=== PATIENT | male | born 1965 | race Caucasian/White ===

== ENCOUNTER 2025-01-13 21:12 | Emergency (ER) | payer SELFPAY ==
[2025-01-13] VITALS (17 sets, daily range): BP systolic 131–192; BP diastolic 69–92; PULSE 134–152; RESP 17–29; TEMP 36.2; O2SAT 84–100
--- NOTE | ~2025-01-13 | CT_ITS ---
EXAMINATION: CT brain wo con DATE: 01/13/2025 21:42 INDICATION: TRANSIENT ALTERATION OF AWARENESS. SLURRED SPEECH. . TECHNIQUE: Computed tomography (CT) of the head was performed without intravenous contrast. The mA wa s adjusted according to patient size. Iterative reconstruction technique was employed. The dose-lengt h product was 681.00 mGy-cm. COMPARISON: None. FINDINGS: No acute intracranial hemorrhage or extra-axial fluid collection. No hydrocephalus, mass, or herniation. No acute ischemic infarct. Unremarkable dural venous sinus attenuation. No acute osseous abnormality. Mild inferior right maxillary mucosal thickening, the remaining aerated spaces are clear. Moderate atrophy and chronic white matter change. Atherosclerotic intracranial calcification. Small r egion of dense calcifications in the left parietal lobe white matter, adjacent to the atrium of the l eft lateral ventricle. IMPRESSION: No acute intracranial process. Focus of calcifications in the left parietal periventricular white matter, may represent a developmen yeni venous anomaly, small AVM, dystrophic calcification from prior injury/insult, or other calcified lesion. Consider MRI of the brain without and with contrast for further evaluation. Reviewed, dictated and finalized at location K. IMPRESSION: No acute intracranial process. Focus of calcifications in the left parietal periventricular white matter, may represent a developmental venous anomaly, small AVM, dystrophic calcification f rom prior injury/insult, or other calcified lesion. Consider MRI of the brain w ithout and with contrast for further evaluation.
--- NOTE | ~2025-01-13 | XR_ITS ---
XR chest port-a-cath/central Ordering provider: Rich Centeno MD History: 59 years Male with . status post left subclavian central line. . Comparison: January 13, 2025 FINDINGS: MEDIASTINUM: The cardiac silhouette is not enlarged. Left central line is seen with the tip overlying the superior vena cava. LUNGS: No infiltrates, effusions or pneumothorax. Slightly prominent bronchovascular markings are seen bilaterally. OTHER: No free air under the diaphragm. IMPRESSION: No acute cardiopulmonary pathology. Left central line with the tip overlying the superior vena cava. Reviewed, dictated and finalized at location A. IMPRESSION: No acute cardiopulmonary pathology. Left central line with the tip overlying th e superior vena cava.
--- NOTE | ~2025-01-13 | XR_ITS ---
EXAMINATION: XR chest 1V portable Exam Date/Time: 01/13/2025 21:30 CDT HISTORY: shortness of breath Comparison: None. RESULT: Lines, tubes, and devices: None. Lungs and pleura: Rightward rotation. Low volumes. Subsegmental bibasilar opacities. Cardiomediastinal silhouette: Unremarkable. Other: Multiple loops of dilated small bowel in the upper abdomen No acute osseous finding. IMPRESSION: Subsegmental bibasilar atelectasis/consolidation. Multiple loops of dilated small bowel in the upper abdomen, recommend CT of the abdomen and pelvis wi th contrast for further evaluation. Reviewed, dictated and finalized at location K. IMPRESSION: Subsegmental bibasilar atelectasis/consolidation. Multiple loops of dilated small bowel in the upper abdomen, recommend CT of the abdomen and pelvis with contrast for further evaluation.
--- NOTE | 2025-01-13 21:16 | ECG_ITS ---
Test Date: 2025-01-13 21:18:22 Measurements Intervals [place] Rate: 143 P: 0 PA: 0 QRS: -71 QRSD: 134 T: 73 QT: 336 QTc: 519 Interpretive Statements ATRIAL FLUTTER/TACHYCARDIA WITH RAPID VENTRICULAR RESPONSE LEFT AXIS DEVIATION INTRAVENTRICULAR CONDUCTION DELAY CANNOT R/O SEPTAL INFARCT, AGE INDETERMINATE BORDERLINE ST-T WAVE ABNORMALITY- HIGH LATERAL LEADS BASELINE ARTIFACT- I, II, III, AVR, AVL, AVF, V1-V6 ABNORMAL ECG No previous ECG available for comparison Electronically Signed On 01-14-2025 07:44:59 CDT by Hum[place] Cross D.O.
--- NOTE | 2025-01-13 21:16 | ED_ITS ---
HPI - Altered Mental Status General Chief Complaint: Altered Mental Status Stated Complaint: Altered Mental Status Time Seen by Provider: 01/13/25 21:16 Source: EMS Mode of arrival: EMS Limitations: altered mental status History of Present Illness HPI narrative: year old male with a history of hypertension, diabetes mellitus, CVA with TIA, dyslipidemia, gout, was noted to have -- decreased level of consciousness. Last known well was 24 hours ago. -- questionable weakness of the right half of the body -- expressive aphasia -- patient is continuously moaning. He denied pain. patient is awake and follows verbal commands. Is afebrile and hemodynamically stable. Blood sugars 255 MD complaint: confusion Onset (ago): unknown Timing confirmed by: caregiver Consistency of symptoms: constant Related Data Home Medications ?Medication ?Instructions ?Recorded ?Confirmed ?Last Taken ?Type allopurinol 100 mg tablet 100 mg PO .AM 01/13/25 01/13/25 Unknown History atorvastatin 40 mg tablet (Lipitor) 40 mg PO .AM 01/13/25 01/13/25 Unknown History folic acid 400 mcg tablet 400 mcg PO DAILY 01/13/25 01/13/25 Unknown History furosemide 40 mg tablet 40 mg PO DAILY PRN weight gain 01/13/25 01/13/25 Unknown History metoprolol succinate 50 mg 50 mg PO .AM 01/13/25 01/13/25 Unknown History tablet,extended release 24 hr pantoprazole 40 mg tablet,delayed 40 mg PO QAM 01/13/25 01/13/25 Unknown History release quetiapine 50 mg tablet 150 mg PO HS 01/13/25 01/13/25 Unknown History dapagliflozin propanediol 10 mg 10 mg PO QAM 01/14/25 01/14/25 Unknown History tablet (Farxiga) hydroxyzine HCl 25 mg tablet 25 mg PO QID PRN anxiety 01/14/25 01/14/25 Unknown History loratadine 10 mg capsule (Allergy 10 mg PO DAILY 01/14/25 01/14/25 Unknown History Relief (loratadine)) vitamin B complex 1 tablet PO QAM 01/14/25 01/14/25 Unknown History Allergies Allergy/AdvReac Type Severity Reaction Status Date / Time Unable to Assess Allergy Verified 01/13/25 21:46 Review of Systems 2 Review of Systems: ROS unobtainable: Yes unobtainable due to mental status PMFSH Past Medical History Medical History (Updated 01/14/25 @ 00:24 by Rich Centeno MD) COPD (chronic obstructive pulmonary disease) Gout CHF (congestive heart failure) Dyslipidemia Hypertension TIA (transient ischemic attack) Diabetes mellitus Exam 2 Narrative: Pulse of 140. Blood pressure stable. Temperature 97.4?. Oxygen saturation of 100% on room air Const: General: ill appearing Limitations: altered mental status Other: patient follows verbal commands. Unable to talk HENMT: Head: normal to inspection Ears: external ears normal F daniel/Nose/Sinus: Normal external nose present Face and sinus: normal facial exam Mouth: Yes Normal oral and palatal mucosa present Throat: posterior oropharynx normal Eyes: Conjunctivae: conjunctivae normal Pupils: Equal, round and reactive pupils present EOM: EOMs intact bilaterally Direct Ophthalmoscopy: no photophobia Neck: Neck: normal visual inspection Chest: Chest palpation & inspection: normal inspection of the chest Resp: Effort & Inspection: normal respiratory effort Auscultation: clear to auscultation bilaterally Cardio: Rate: tachycardic Rhythm: regular rhythm GI: GI Palp: Yes Soft to palpation Other: no tenderness/ rigidity /rebound : General: Yes no CVA tenderness Back/Spine/Pelvis: Back: no CVA tenderness Skin: Rashes: no rashes Wounds: no wounds Neuro: General: no focal motor deficits ( right sided weakness arm greater than leg) Speech: Abnormal speech present ( expressive aphasia) Extrem: General: normal to inspection and edema Psych: Mental Status: mental status grossly normal Course Course Emergency Course: altered mental status CVA with right-sided weakness and expressive aphasia-- last known well 24 hours ago. patient has a prior history of TIA involving the right side. while in the ED the patient developed right-sided focal seizures with deviation of the eyes to the left. This seizure lasted approximately 2 minutes. The patient received 2 mg of IV Ativan and subsequently 1000 mg of IV Keppra. The patient was noted to have lip bite and tongue bite. CT of the head showed left periventricular parietal lesion suggestive of an AVM/ prior infarct Postictal the patient continues to have ongoing right-sided weakness. elevated white cell count with elevated lactate-- could be secondary to seizure. Blood cultures and start empiric Vanco/Zosyn. x-ray revealed bibasilar atelectasis/ consolidation renal failure with a BUN/creatinine of 12/2 with metabolic acidosis with a bicarbonate of 17. Patient has anion gap of 20 possibly secondary to lactate. patient has elevated blood sugars and is on Farxiga. Cannot rule out DKA. Patient had an ABG on 10 L initially which was noted to be 684/48/270. this was done almost immediately after a seizure. A repeat ABG on room air was noted to be 715/50/60 Elevated blood sugars-- patient got 10 units of regular insulin IV x1. Will repeat blood sugars. distended loops of small intestine ongoing tachycardia-- heart rate has decreased from 150 to current levels of 137 after 2 L of IV fluids. discussed with , consumer insights specialist at [facility] in [place]. Advised to continue current management and give an additional 1 g of Keppra. Vital Signs Vital signs: Vital Signs Temperature 36.2 C L 01/13/25 21:15 Pulse Rate 150 H 01/13/25 21:15 Pulse Oximetry 99 01/13/25 21:15 Oxygen Delivery Nasal Cannula 01/13/25 21:15 Oxygen Flow Rate 2 01/13/25 21:15 Temperature 36.6 C 01/14/25 00:15 Pulse Rate 133 H 01/14/25 00:16 Respiratory Rate 18 01/14/25 00:15 Blood Pressure 150/73 H 01/14/25 00:15 Pulse Oximetry 95 01/14/25 00:15 Oxygen Delivery Nasal Cannula 01/14/25 00:15 Oxygen Flow Rate 4 01/14/25 00:15 Procedures Central Line Placement Right IJ: Central Line Date: 01/13/25 Central Line Time: 23:30 Discussed w/ the patient/family/POA,the placement of a central venous catheter, including its clinical necessity/indication & associated potential risks, benifits and alternatives.: Yes ( family not available. Patient needed axis emergently) Performed Emergently - Given emergent patient condition, temporal constraints may have precluded informed consent.: Yes Time Out Performed: Yes Patient Placed on Monitor/Pulse Ox: Yes Max. Sterile Barrier Technique: Caps, large sterile sheet and hand hygiene Central Line Prep: 2% chlorhexidine scrub Technique: seldinger Local Anesthetic: lidocaine 1% Amount of anesthesia used (mL): 5 Ultrasound Used for Placement: No Central Line Lumen Inserted: triple Post Procedure: sutured in place Post Procedure X-Ray: tip of catheter in good position Patient Tolerated Procedure: well Complications: none Additional Comments: attempted right subclavian and right IJ central line access but was unsuccessful. Attempted left subclavian vein access. successfully placed a central line. Postprocedure chest x-ray did not show any evidence of pneumothorax. No complications. MDM - Altered Mental Status MDM Narrative Medical decision making narrative: Right hemiplegia aphasia right sided focal seizures- One seen in the ED. altered mental status renal failure/ metabolic acidosis small-bowel ileus hyperglycemia Differential Diagnosis Differential diagnosis: Likely altered mental status, hypoglycemia and subarachnoid hemorrhage Lab Data Attestation: I reviewed the patient's lab results. 01/13/25 22:20 01/13/25 22:20 Labs: Lab Results 01/13/25 01/13/25 01/14/25 Range/Units 21:18 22:20 00:58 WBC 26.5 H* (4.8-10.8) K/mm3 RBC 4.64 L (4.70-6.10) M/mm3 Hgb 11.9 L (14.0-18.0) g/dL Hct 38.7 L (40.0-54.0) % MCV 83.4 (78.0-102.0) fL MCH 25.6 L (27.0-31.0) pg MCHC 30.7 L (32-36) g/dL RDW 16.3 H (11.6-14.4) % Plt Count 514 H (150-420) K/mm3 MPV 9.8 (8.7-11.0) fl Immature Gran % (Auto) Not Reportable Neut % (Auto) Not Reportable Lymph % (Auto) Not Reportable Drew % (Auto) Not Reportable Eos % (Auto) Not Reportable Baso % (Auto) Not Reportable Lymph # (Auto) Not Reportable Drew # (Auto) Not Reportable Eos # (Auto) Not Reportable Baso # (Auto) Not Reportable Abs Immat Gran (auto) Not Reportable Absolute Neuts (auto) Not Reportable Absolute Nucleated RBC Not Reportable Total Counted 100 Neutrophils % (Manual) 89 H (46-73) % Band Neutrophils % 1 (0-6) % Lymphocytes % (Manual) 6 L (18-44) % Monocytes % (Manual) 4 (3-9) % Nucleated RBC % Not Reportable Abs Neuts (Manual) 23.85 H (1.3-6.7) K/mm3 Abs Lymphs (Manual) 1.59 (1.1-4.5) K/mm3 Abs Monocytes (Manual) 1.06 H (0.1-0.90) K/mm3 Platelet Estimate Increased (Adequate) % Immature Plt Fraction 1.4 (1.0-7.0) % Schistocytes None seen PT 10.9 (9.50-12.1) Seconds INR 1.0 APTT 21.5 L (23.9-30.70) Sec Sodium 137 (136-145) mmol/L Potassium 3.7 (3.5-5.1) mmol/L Chloride 100 (98-108) mmol/L Carbon Dioxide 17 L (21-32) mmol/L Anion Gap 20 H (4-12) mmol/L BUN 12 (7-18) mg/dL Creatinine 2.02 H (0.70-1.30) mg/dL Estim Creat Clear Calc Not Reportable Estimated GFR 34 L (59 - ) Glucose 342 H (70-99) mg/dL POC Capillary Glucose 255 H 316 H (65-105) mg/dl Calculated Osmolality 297 H (285-295) mOsm/kg Lactic Acid 11.5 H (0.4-2.0) mmol/L Calcium 8.7 (8.5-10.1) mg/dL Magnesium 1.6 L (1.8-2.4) mg/dL Total Bilirubin 1.1 H (0.00-1.00) mg/dL AST 24 (15-37) U/L ALT 32 (16-63) U/L Alkaline Phosphatase 207 H (46-116) U/L Ammonia 18 (11-32) umol/L Troponin I 21.0 (0.00-60.4) ng/L NT-Pro-B Natriuret Pep 355 H (0-125) pg/mL Total Protein 7.5 (6.4-8.2) g/dL Albumin 3.6 (3.4-5.0) g/dL Lipase 6 L (16-77) U/L TSH 4.19 H (0.36-3.74) uIU/mL Influenza A (RT-PCR) Negative (Negative) Influenza B (RT-PCR) Negative (Negative) RSV (RT-PCR) Negative (Negative) SARS-CoV-2 RNA (RT-PCR) Negative (Negative) 01/14/25 Range/Units 01:10 WBC (4.8-10.8) K/mm3 RBC (4.70-6.10) M/mm3 Hgb (14.0-18.0) g/dL Hct (40.0-54.0) % MCV (78.0-102.0) fL MCH (27.0-31.0) pg MCHC (32-36) g/dL RDW (11.6-14.4) % Plt Count (150-420) K/mm3 MPV (8.7-11.0) fl Immature Gran % (Auto) Neut % (Auto) Lymph % (Auto) Drew % (Auto) Eos % (Auto) Baso % (Auto) Lymph # (Auto) Drew # (Auto) Eos # (Auto) Baso # (Auto) Abs Immat Gran (auto) Absolute Neuts (auto) Absolute Nucleated RBC Total Counted Neutrophils % (Manual) (46-73) % Band Neutrophils % (0-6) % Lymphocytes % (Manual) (18-44) % Monocytes % (Manual) (3-9) % Nucleated RBC % Abs Neuts (Manual) (1.3-6.7) K/mm3 Abs Lymphs (Manual) (1.1-4.5) K/mm3 Abs Monocytes (Manual) (0.1-0.90) K/mm3 Platelet Estimate (Adequate) % Immature Plt Fraction (1.0-7.0) % Schistocytes PT (9.50-12.1) Seconds INR APTT (23.9-30.70) Sec Sodium (136-145) mmol/L Potassium (3.5-5.1) mmol/L Chloride (98-108) mmol/L Carbon Dioxide (21-32) mmol/L Anion Gap (4-12) mmol/L BUN (7-18) mg/dL Creatinine (0.70-1.30) mg/dL Estim Creat Clear Calc Estimated GFR (59 - ) Glucose (70-99) mg/dL POC Capillary Glucose (65-105) mg/dl Calculated Osmolality (285-295) mOsm/kg Lactic Acid Pending (0.4-2.0) mmol/L Calcium (8.5-10.1) mg/dL Magnesium (1.8-2.4) mg/dL Total Bilirubin (0.00-1.00) mg/dL AST (15-37) U/L ALT (16-63) U/L Alkaline Phosphatase (46-116) U/L Ammonia (11-32) umol/L Troponin I (0.00-60.4) ng/L NT-Pro-B Natriuret Pep (0-125) pg/mL Total Protein (6.4-8.2) g/dL Albumin (3.4-5.0) g/dL Lipase (16-77) U/L TSH (0.36-3.74) uIU/mL Influenza A (RT-PCR) (Negative) Influenza B (RT-PCR) (Negative) RSV (RT-PCR) (Negative) SARS-CoV-2 RNA (RT-PCR) (Negative) ABG Data ABG results: 01/13/25 01/14/25 22:20 00:01 Puncture Site Left radial Left radial ABG pH 6.84 L* 7.15 L ABG pCO2 48.4 H 50.1 H ABG pO2 270.3 H 60.1 L ABG HCO3 8.0 L 17.1 L ABG O2 Saturation 98.6 H 81.4 L ABG Base Excess -25.7 L -11.7 L Oxyhemoglobin 97.8 80.7 L O2 Delivery Device Non-rebreather mask Room air O2 Liters/Min 10.0 0.0 ECG Data EKG #1: ECG completion date: 01/13/25 ECG completion time: 21:18 Interpretation: Sinus tachycardia with a heart rate of 143. Left axis deviation. No ST elevation. Prominent Q-waves in anteroseptal leads. Critical Care Time Critical Care Time Critical Care Time: Yes Total Critical Care Time: 50 Discharge Plan Discharge Clinical Impression: Diabetes mellitus, Focal motor seizure, Post-ictal hemiplegia, Renal failure, Hyperglycemia due to type 2 diabetes mellitus Patient Disposition: Home, Self-Care Condition: Stable Instructions: Antibiotic Form Additional Instructions: transfer patient to [facility] in [place]. Patient has been accepted by consumer insights specialist Patient Language: Thai Prescriptions: No Action atorvastatin [Lipitor] 40 mg tablet 40 mg PO .AM pantoprazole 40 mg tablet,delayed release (DR/EC) 40 mg PO QAM folic acid 400 mcg tablet 400 mcg PO DAILY metoprolol succinate 50 mg tablet extended release 24 hr 50 mg PO .AM furosemide 40 mg tablet 40 mg PO DAILY PRN (Reason: weight gain) allopurinol 100 mg tablet 100 mg PO .AM quetiapine 50 mg tablet 150 mg PO HS dapagliflozin propanediol [Farxiga] 10 mg tablet 10 mg PO QAM Allergy Relief (loratadine) 10 mg capsule 10 mg PO DAILY vitamin B complex Tablet 1 tablet PO QAM hydroxyzine HCl 25 mg tablet 25 mg PO QID PRN (Reason: anxiety) Follow-up/Referrals: UNKNOWN,DOCTOR [Non-Staff] - Time of Disposition: 01:19
[2025-01-13 21:23] LABS: Glucose Point of Care 255 mg/dl (65-105)
[2025-01-13] MEDS: LORazepam INJ (*CRX) 2 MG/ML VIAL IV PUSH (22:05)
[2025-01-13] MEDS: levETIRAcetam 1000MG/NACL100ML 1,000 MG/100 ML BAG 400 MG IVPB (22:10)
--- NOTE | 2025-01-13 22:10 | PC.NURSE ---
Luci RN at bedside to start IV, noticed patient have approximately 15 second seizure where he favored turning toward his right side. ERP notified and medication ordered and given. See MAR.
[2025-01-13 22:20] LABS: Base Excess ABG -25.7 mmol/L (0-2); Oxygen Saturation ABG 98.6 % (95-97); Oxyhemoglobin 97.8 % (94-100); PCO2 ABG 48.4 mmHg (35-45); PO2 ABG 270.3 mmHg (80-90)
[2025-01-13 22:28] LABS: Device NON-REBREATHER MASK; Site Drawn LEFT RADIAL
[2025-01-13 22:29] LABS: pH ABG 6.84 (7.35-7.45)
--- NOTE | 2025-01-13 22:30 | PC.NURSE ---
ERP DR. Centeno at bedside for central line insertion.
[2025-01-13 22:34] LABS: Hematocrit 38.7 % (40.0-54.0); Hemoglobin 11.9 g/dL (14.0-18.0); Immature Platelet Fraction Pct 1.4 % (1.0-7.0); Mean Corpuscular HGB Conc 30.7 g/dL (32-36); Mean Corpuscular Hemoglobin 25.6 pg (27.0-31.0); Mean Corpuscular Volume 83.4 fL (78.0-102.0); Mean Platelet Volume 9.8 fl (8.7-11.0); Platelet Count Result 514 K/mm3 (150-420); Red Blood Count 4.64 M/mm3 (4.70-6.10); Red Cell Distribution Width 16.3 % (11.6-14.4)
[2025-01-13 22:40] LABS: Partial Thromboplastin Time 21.5 Sec (23.9-30.70); Prothrombin Time 10.9 Seconds (9.50-12.1)
[2025-01-13] MEDS: LIDOCAINE 1% LOCAL INJ 10 ML VIAL (22:45)
[2025-01-13 22:53] LABS: Lactic Acid Reflex 11.5 mmol/L (0.4-2.0)
[2025-01-13 22:56] LABS: Alanine Aminotransferase 32 U/L (16-63); Albumin Level 3.6 g/dL (3.4-5.0); Alkaline Phosphatase 207 U/L (46-116); Ammonia 18 umol/L (11-32); Anion Gap 20 mmol/L (4-12); Aspartate Amino Transferase 24 U/L (15-37); Bilirubin,Total 1.1 mg/dL (0.00-1.00); Blood Urea Nitrogen 12 mg/dL (7-18); Calcium 8.7 mg/dL (8.5-10.1); Carbon Dioxide 17 mmol/L (21-32); Chloride 100 mmol/L (98-108); Estimated Glomerular Filt Rate 34; Glucose 342 mg/dL (70-99); Lipase 6 U/L (16-77); Magnesium 1.6 mg/dL (1.8-2.4); NT Pro B Type Natriuretic Pept 355 pg/mL (0-125); Osmolality Calculated 297 mOsm/kg (285-295); Potassium 3.7 mmol/L (3.5-5.1); Sodium 137 mmol/L (136-145); Thyroid Stimulating Hormone 4.19 uIU/mL (0.36-3.74); Total Protein 7.5 g/dL (6.4-8.2); White Blood Count 26.5 K/mm3 (4.8-10.8)
[2025-01-13 23:18] LABS: Band Neutrophils Percent 1 % (0-6); Lymphocytes Absolute Manual 1.59 K/mm3 (1.1-4.5); Lymphocytes Percent Manual 6 % (18-44); Monocytes Absolute Manual 1.06 K/mm3 (0.1-0.90); Monocytes Percent Manual 4 % (3-9); Neutrophils Absolute Manual 23.85 K/mm3 (1.3-6.7); Neutrophils Percent Manual 89 % (46-73); Platelet Estimate Increased (Adequate); Schistocytes None Seen; Total Cells Counted 100
[2025-01-13] MEDS: LACTATED RINGERS 1,000 ML 999 ML IV CONT (23:45)
[2025-01-13] MEDS: PIPERACILLIN/TAZ 4.5G/NS 100ML 4.5 GM/100 ML BAG IVPB (23:55)
[2025-01-14] VITALS (19 sets, daily range): BP systolic 131–162; BP diastolic 73–117; PULSE 131–142; RESP 18–20; TEMP 36.6; O2SAT 92–99
[2025-01-14] MEDS: SODIUM BICARBONATE 8.4% 50 MEQ/50 ML SYRINGE 100 MEQ IV PUSH (00:01)
[2025-01-14 00:07] LABS: Base Excess ABG -11.7 mmol/L (0-2); HCO3 ABG 17.1 mmol/L (23-29); Oxygen Saturation ABG 81.4 % (95-97); Oxyhemoglobin 80.7 % (94-100); PCO2 ABG 50.1 mmHg (35-45); PO2 ABG 60.1 mmHg (80-90); pH ABG 7.15 (7.35-7.45)
[2025-01-14 00:10] LABS: Device ROOM AIR; Site Drawn LEFT RADIAL
[2025-01-14 00:20] LABS: Influenza A QL RT-PCR Negative (Negative); Influenza B QL RT-PCR Negative (Negative); RSV RNA, RT-PCR Negative (Negative); SARS-CoV-2 RNA PCR Negative (Negative)
[2025-01-14 00:21] LABS: Reflex Lactic Acid Yes or No Add Lactic
[2025-01-14] MEDS: INSULIN HUMAN REGULAR (*BKC) 1,000 UNITS/10 ML VIAL 10 UNITS IV PUSH (00:29)
[2025-01-14] MEDS: SODIUM CHLORIDE 0.9% IV 1,000 ML 999 ML IV CONT (00:34)
[2025-01-14] MEDS: levETIRAcetam 1000MG/NACL100ML 1,000 MG/100 ML BAG 400 MG IVPB (00:36)
[2025-01-14 01:04] LABS: Glucose Point of Care 316 mg/dl (65-105)
[2025-01-14] MEDS: VANCOMYCIN 1,250 MG/NS 250 ML 1,250 MG/250 ML BAG 166.67 MG IVPB (01:04)
[2025-01-14] MEDS: MAGNESIUM SULF 2 GM/WATER 50ML 2 GM/50 ML BAG IVPB (01:04)
[2025-01-14 01:32] LABS: Lactic Acid 6.9 mmol/L (0.4-2.0)
[2025-01-14] MEDS: LACTATED RINGERS 1,000 ML 150 ML IV CONT (01:58)
--- NOTE | 2025-01-15 14:04 | PC.NURSE ---
PRELIMINARY BLOOD CULTURE NO GROWTH TO DATE
== END 2025-01-14 02:21 | disposition short-term general hospital (02) ==
PROVIDERS: Emergency Provider Internal Medicine Critical Care Medicine; PCP Internal Medicine
DX: G83.84 Todd's paralysis (postepileptic) (principal); I13.0 Hypertensive heart and chronic kidney disease with heart failure and stage 1 through stage 4 chronic kidney disease, or unspecified chronic kidney disease; E11.22 Type 2 diabetes mellitus with diabetic chronic kidney disease; N18.9 Chronic kidney disease, unspecified; E11.65 Type 2 diabetes mellitus with hyperglycemia; E78.5 Hyperlipidemia, unspecified; J44.9 Chronic obstructive pulmonary disease, unspecified; Z86.73 Personal history of transient ischemic attack (TIA), and cerebral infarction without residual deficits; Z20.822 Contact with and (suspected) exposure to COVID-19
CPT/HCPCS: 36415; 36556; 36600; 70450; 71045; 80053; 82140; 82805; 82948; 83605; 83690; 83735; 83880; 84443; 84484; 85025; 85055; 85610; 85730; 87040; 87637; 93005; 96361; 96365; 96366; 96367; 96375; 99291; C1751; J1815; J1953; J2003; J2060; J2543; J3370; J3475; J7030; J7120